=== PATIENT | female | born 1950 | race African-American/Black ===

== ENCOUNTER 2019-02-14 10:06 | Inpatient (IN) | payer OTHER ==
[2019-02-14 10:18] VITALS: BMI 33.4
--- NOTE | 2019-02-14 10:41 | PDOC ---
Documentation entered by Lorna Guerrero SCRIBE, acting as scribe for Joyce Alejandro MD. Joyce Alejandro MD: This documentation has been prepared by the Yolanda woodruff Adrianna, SCRIBE, under my direction and personally reviewed by me in its entirety. I confirm that the documentation accurately reflects all work, treatment, procedures, and medical decision making performed by me. History of Present Illness - General Chief Complaint: AV shunt bleeding Stated Complaint: BLEEDING Time Seen by Provider: 02/14/19 10:27 History Source: Patient Exam Limitations: No Limitations - History of Present Illness Initial Comments: 02/14/19 10:38 68-year-old female history of hypertension end-stage renal disease on dialysis Tuesday, Parkinson's, anemia here from [facility] for a bleeding fistula. Per snf the patient's fistula has been having episodes of bleeding intermittently for the last 2 weeks. Patient states her last dialysis was on Tuesday 5 days prior she did not have dialysis 2 days ago per schedule due to the fact that her fistula was bleeding. States she is scheduled to see Dr. Paniagua tomorrow but today the site began bleeding excessively. Denies any chest pain or shortness of breath no other current complaints states she has been on dialysis for 8 years does take a baby aspirin daily allergic to tetracycline PCP is Dr. janny calvillo Past History - Past Medical History Allergies/Adverse Reactions: Allergies Allergy/AdvReac Type Severity Reaction Status Date / Time tetracycline Allergy Verified 02/14/19 10:18 Anemia: Yes COPD: No Dialysis: Yes HTN: Yes Other medical history: necrotizing hemorrhagic encephalopathy - Psycho Social/Smoking Cessation Hx Smoking History: Never smoked Have you smoked in the past 12 months: No Information on smoking cessation initiated: No Hx Alcohol Use: No Drug/Substance Use Hx: No Review of Systems - Review of Systems Comments:: GENERAL/CONSTITUTIONAL: No fever or chills. No weakness. HEAD, EYES, EARS, NOSE AND THROAT: No change in vision. No ear pain or discharge. No sore throat. CARDIOVASCULAR: No chest pain or shortness of breath. RESPIRATORY: No cough, wheezing, or hemoptysis. GASTROINTESTINAL: No nausea, vomiting, diarrhea or constipation. GENITOURINARY: No dysuria, frequency, or change in urination. MUSCULOSKELETAL: +RUE fistula bleeding. No joint or muscle swelling. No neck or back pain. SKIN: No rash NEUROLOGIC: No headache, vertigo, loss of consciousness, or change in strength/ sensation. ENDOCRINE: No increased thirst. No abnormal weight change. HEMATOLOGIC/LYMPHATIC: No anemia, easy bleeding, or history of blood clots. ALLERGIC/IMMUNOLOGIC: No hives or skin allergy. *Physical Exam - Vital Signs Last Vital Signs Temp Pulse Resp BP Pulse Ox 97.8 F 77 20 122/76 98 02/14/19 10:09 02/14/19 10:09 02/14/19 10:09 02/14/19 10:09 02/14/19 10:09 - Physical Exam Comments: 02/14/19 10:40 Awake alert no acute distress lungs are clear bilaterally heart is regular without murmurs rubs or gallops abdomen is soft nontender obese. Extremities is noted for a right upper extremity fistula there is an active arterial bleed which is pulsatile. Pressure dressing was applied with Surgicel and wrapped with an Kirill bandage bleeding was controlled neurologically patient is alert and oriented x3 skin is otherwise warm dry and intact Heart Score/ECG Review #1 General ECG Interpretation: Sinus Rhythm, Normal Rate, Normal Intervals, No acute ischemic changes Compared to previous ECG there are: Previous ECG unavail (TWI I AVL< V6, no old ekg.) ED Treatment Course - LABORATORY CBC & Chemistry Diagram: 02/14/19 10:55 02/14/19 10:55 Medical Decision Making - Medical Decision Making 02/14/19 10:40 68-year-old female end-stage renal disease hypertension here with a bleeding fistula will likely require emergent vascular repair. Dr. Paniagua will be paged preop's were sent CBC CMP and coags. In addition patient will have a chest x-ray to rule out any underlying pulmonary edema as she did miss her most recent dialysis. 02/14/19 18:05 pt evaluted by vasc surgery in ed. wound ulcerated. unable to repair in ED. will treat with temporary vasc access, and close off fistula. Discharge - Discharge Information Problems reviewed: Yes Clinical Impression/Diagnosis: Hemorrhage of arteriovenous fistula, ESRD (end stage renal disease) Condition: Good - Admission Yes - Follow up/Referral - Patient Discharge Instructions - Post Discharge Activity
[2019-02-14 11:11] LABS: BASO % 0.7 % (0-2.0); HEMATOCRIT 25.8 % (32.4-45.2); HEMOGLOBIN 8.9 GM/dL (10.7-15.3); LYMPH % 14.2 % (8-40); MCH 32.6 pg (25.7-33.7); MCHC 34.5 g/dl (32.0-36.0); MEAN CELL VOLUME 94.4 fl (80-96); MEAN PLT VOLUME 9.1 fl (7.5-11.1); MONO % 5.4 % (3.8-10.2); NEUT % 69.7 % (42.8-82.8); PLATELET COUNT 206 K/MM3 (134-434); RBC 2.73 M/mm3 (3.60-5.2); RDW 16.5 % (11.6-15.6); WHITE BLOOD COUNT 9.3 K/mm3 (4.0-10.0)
[2019-02-14 11:23] LABS: INR 1.13 (0.83-1.09); PROTHROMBIN TIME (PATIENT) 13.3 SEC (9.7-13.0)
[2019-02-14 11:26] LABS: ACTIVATED PTT 29.5 SECONDS (25.2-36.5)
[2019-02-14 12:01] LABS: ALBUMIN 3.2 g/dl (3.4-5.0); BILIRUBIN,TOTAL 0.5 mg/dL (0.2-1); BLOOD UREA NITROGEN 31.7 mg/dL (7-18); TOT PROT 6.9 g/dl (6.4-8.2)
[2019-02-14] MEDS ORDERED: MIDAZOLAM HCL 2 MG/2 ML SINGLE DOSE VIAL ONE ×2 (13:31→14:41)
--- NOTE | 2019-02-14 13:31 | CONSULT ---
Consult Consult Specialty:: Nephrology Reason for Consultation:: ESRD - History of Present Illness Chief Complaint: right arm fistula bleeding History of Present Illness: Pt is a 68 year old female with pmhx of esrd, anemia and htn who was sent in for bleeding from her right av fistula. I was called to evaluate her as she is an HD pt. She last went to HD on Tuesday however was not dialyzed as she had bleeding. She denies shortness of breath or palpitations. SHe is awake and alert. She denies fevers or chills. She had an appointment to see Dr Paniagua as outpt however came to the ER as she had excessive bleeding. - History Source History Provided By: Patient, Medical Record - Past Medical History Cardio/Vascular: Yes: HTN Renal/: Yes: Renal Failure, Hemodialysis Heme/Onc: Yes: Anemia - Past Surgical History Past Surgical History: Yes: AV Fistula/Graft - Alcohol/Substance Use Hx Alcohol Use: No - Smoking History Smoking history: Never smoked Have you smoked in the past 12 months: No Home Medications - Allergies Allergies/Adverse Reactions: Allergies Allergy/AdvReac Type Severity Reaction Status Date / Time tetracycline Allergy Verified 02/14/19 10:18 Family Medical History Family History: Denies Review of Systems - Review of Systems Constitutional: reports: No Symptoms Eyes: reports: No Symptoms HENT: reports: No Symptoms Neck: reports: No Symptoms Cardiovascular: reports: No Symptoms Respiratory: reports: No Symptoms Gastrointestinal: reports: No Symptoms Musculoskeletal: reports: Other (bleeding from av fistula) Neurological: reports: No Symptoms Endocrine: reports: No Symptoms Hematology/Lymphatic: reports: No Symptoms Psychiatric: reports: No Symptoms Physical Exam Vital Signs: Vital Signs Temperature 97.8 F 02/14/19 10:09 Pulse Rate 77 02/14/19 10:09 Respiratory Rate 20 02/14/19 10:09 Blood Pressure 122/76 02/14/19 10:09 O2 Sat by Pulse Oximetry (%) 98 02/14/19 10:09 Constitutional: Yes: Calm Eyes: Yes: Conjunctiva Clear HENT: Yes: Atraumatic Neck: Yes: Supple Cardiovascular: Yes: S1, S2 Respiratory: Yes: CTA Bilaterally Gastrointestinal: Yes: Soft, Abdomen, Obese Renal/: Yes: WNL Musculoskeletal: Yes: WNL Extremities: Yes: Other (right arm fistula with compression dressing, right hand cooler than left hand) Integumentary: Yes: WNL Neurological: Yes: Oriented Psychiatric: Yes: Oriented Labs: CBC, BMP 02/14/19 10:55 02/14/19 10:55 Imaging - Results Chest X-ray: Report Reviewed Problem List - Problems (1) Anemia Code(s): D64.9 - ANEMIA, UNSPECIFIED (2) ESRD (end stage renal disease) Code(s): N18.6 - END STAGE RENAL DISEASE (3) HTN (hypertension) Code(s): I10 - ESSENTIAL (PRIMARY) HYPERTENSION (4) Hemorrhage of arteriovenous fistula Code(s): T82.838A - HEMORRHAGE DUE TO VASCULAR PROSTH DEV/GRFT, INIT Assessment/Plan Impression 1. ESRD 2. av fistula bleeding 3. htn 4. anemia Plan - vascular surgery to evaluate access - will arrange for HD once access is in place - can dialyze tomorrow as she is going to OR tonight - monitor bp - check iron studies - epogen for anemia
[2019-02-14] MEDS ORDERED: LIDOCAINE HCL 1%, 10 MG/ML (20ML VIAL) ONE (13:32)
[2019-02-14] MEDS ORDERED: HEPARIN NA (PORCINE) 5,000 UNITS/ML 1ML VIAL ONE (13:32)
--- NOTE | 2019-02-14 13:36 | HP ---
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: Parkinson's Cardiovascular: Yes: HTN Renal/: Yes: Hemodialysis - Smoking History Smoking history: Never smoked Have you smoked in the past 12 months: No - Alcohol/Substance Use Hx Alcohol Use: No Home Medications - Allergies Allergies/Adverse Reactions: Allergies Allergy/AdvReac Type Severity Reaction Status Date / Time tetracycline Allergy Verified 02/14/19 10:18 - Home Medications Home Medications: Ambulatory Orders Acetaminophen [Tylenol] 325 mg PO PRN 02/16/19 Aspirin [Aspirin EC] 81 mg PO ONCE 02/16/19 Hydralazine HCl 10 mg PO TID 02/16/19 Labetalol HCl [Normodyne -] 100 mg PO BID 02/16/19 Losartan Potassium 50 mg PO ONCE 02/16/19 Review of Systems - Review of Systems Constitutional: denies: Chills, Fever Physical Examination Vital Signs: Vital Signs Temperature 97.8 F 02/14/19 10:09 Pulse Rate 77 02/14/19 10:09 Respiratory Rate 20 02/14/19 10:09 Blood Pressure 122/76 02/14/19 10:09 O2 Sat by Pulse Oximetry (%) 98 02/14/19 10:09 Constitutional: Yes: No Distress, Calm Cardiovascular: Yes: Regular Rate and Rhythm Respiratory: Yes: CTA Bilaterally Gastrointestinal: Yes: Normal Bowel Sounds, Soft, Abdomen, Obese. No: Tenderness Edema: No Labs: CBC, BMP 02/14/19 10:55 02/14/19 10:55 Imaging - Results Chest X-ray: Image Reviewed EKG: Image Reviewed Problem List - Problems (1) Anemia Code(s): D64.9 - ANEMIA, UNSPECIFIED (2) ESRD (end stage renal disease) Code(s): N18.6 - END STAGE RENAL DISEASE (3) HTN (hypertension) Code(s): I10 - ESSENTIAL (PRIMARY) HYPERTENSION (4) Hemorrhage of arteriovenous fistula Code(s): T82.838A - HEMORRHAGE DUE TO VASCULAR PROSTH DEV/GRFT, INIT (5) Parkinson disease Code(s): G20 - PARKINSON'S DISEASE Assessment/Plan PLAN Seen by vascular will be going to OR today for AVF repair Renal eval for dialysis may need PRBC if needed continue with meds
--- NOTE | 2019-02-14 13:38 | CONSULT ---
<Souleymane Estrada P - Last Filed: 02/14/19 13:41> - Consultation REQUESTING PROVIDER: VASCULAR SURGERY - Juventino Paniagua CONSULT REQUEST: We have been asked to surgically evaluate this patient for bleeding RUE AVF PCP: Angely Castellon HPI: Called to david 68 yo female w/ PMHx as noted below. Sent in from [facility] secondary to bleeding fistula. Patient states she's been having intermittent bleeding issues with her fistula over 2 weeks. Typically would stop with a little direct pressure. Per her (at bedside) states her last HD session was on Tuesday (due today as per her schedule). Only takes a baby ASA daily. Last meal eaten was breakfast. Denies n/v/f/c, CP, palpitations, peripheral edema, SOB or ONTIVEROS. PMHx: Anemia, ESRD on HD (M-W-), HTN, Parkinson's PSHx: RUE AVF Allergies: Tetracycline ROS: CONSTITUTIONAL: Absent: fever, chills, diaphoresis, generalized weakness, malaise, loss of appetite CARDIOVASCULAR: Absent: syncope, irregular heart rate, lightheadedness RESPIRATORY: Absent: cough, wheezing, stridor, hemoptysis GASTROINTESTINAL:Absent: abdominal pain, abdominal distension, melena, hematochezia GENITOURINARY: Absent: dysuria, frequency, urgency, hesitancy, hematuria, flank pain, genital pain MUSCULOSKELETAL: Absent: myalgia, arthralgia, joint swelling, back pain, neck pain SKIN: Absent: rash, itching, pallor HEMATOLOGIC/IMMUNOLOGIC: Absent: easy bruising, lymphadenopathy NEUROLOGIC: Absent: headache, focal weakness, paresthesias,unsteady gait, seizure, mental status changes, PSYCHIATRIC: Absent: anxiety, depression, suicidal or homicidal ideation, hallucinations. PE: GENERAL: A&O. NAD HEAD: NC. AT. EYES: PERRL, sclera anicteric, conjunctiva clear. LUNGS: CTA bilat HEART: RRR ABDOMEN: Obese habitus. Soft, NT. ND. UE: LUE unremarkable. RUE with palpable thrill (just proximal to AC fossa). Actively bleeding from small (~ 1cm x 1cm) ulceration over previous HD needle insertion site. 2+ pulses, warm, well-perfused. No cyanosis. Cap refill <2 seconds. No peripheral edema. LE: 2+ pulses, warm, well-perfused. No calf tenderness. No peripheral edema. PSYCH: Cooperative. Good eye contact. Appropriate mood and affect. SKIN: Warm, dry, normal turgor, no rashes or lesions noted. Last Vital Signs Temp Pulse Resp BP Pulse Ox 97.8 F 77 20 122/76 98 02/14/19 10:09 02/14/19 10:09 02/14/19 10:09 02/14/19 10:09 02/14/19 10:09 CBC, BMP 02/14/19 10:55 02/14/19 10:55 INR, PTT INR 1.13 (0.83-1.09) H 02/14/19 10:55 Blood Type Blood Type O POSITIVE 02/14/19 10:55 Problem List - Problems (1) Hemorrhage of arteriovenous fistula Assessment/Plan: 68 yo female with actively bleeding RUE AVF. Able to control temporarily with pressure dressing NPO IVF Pressure dressing in place Going to OR today for AVF ligation, insertion of Permacath Renal/[place] following and will schedule HD Medical optimization Above plan discussed with Dr. Paniagua and agrees. Code(s): T82.838A - HEMORRHAGE DUE TO VASCULAR PROSTH DEV/GRFT, INIT (2) Anemia Code(s): D64.9 - ANEMIA, UNSPECIFIED (3) HTN (hypertension) Code(s): I10 - ESSENTIAL (PRIMARY) HYPERTENSION (4) Parkinson disease Code(s): G20 - PARKINSON'S DISEASE (5) ESRD (end stage renal disease) Code(s): N18.6 - END STAGE RENAL DISEASE Visit type - Case Type Case Type: ED Admission - Emergency Emergency Visit: Yes ED Registration Date: 02/14/19 Care time: The patient presented to the Emergency Department on the above date and was hospitalized for further evaluation of their emergent condition. - New patient This patient is new to me today: Yes Date on this admission: 02/14/19 <Juventino Paniagua - Last Filed: 02/15/19 15:35> - Consultation REQUESTING PROVIDER: CONSULT REQUEST: We have been asked to surgically evaluate this patient for ( specify). PCP:April Llanos HISTORY OF PRESENT ILLNESS: PMHx: PSHx: Allergies Allergy/AdvReac Type Severity Reaction Status Date / Time tetracycline Allergy Verified 02/14/19 10:18 REVIEW OF SYSTEMS: CONSTITUTIONAL: Absent: fever, chills, diaphoresis, generalized weakness, malaise, loss of appetite, weight change CARDIOVASCULAR: Absent: chest pain, syncope, palpitations, irregular heart rate, lightheadedness , peripheral edema RESPIRATORY: Absent: cough, shortness of breath, dyspnea with exertion, wheezing, stridor, hemoptysis GASTROINTESTINAL: Absent: abdominal pain, abdominal distension, nausea, vomiting, diarrhea, constipation, melena, hematochezia GENITOURINARY: Absent: dysuria, frequency, urgency, hesitancy, hematuria, flank pain, genital pain MUSCULOSKELETAL: Absent: myalgia, arthralgia, joint swelling, back pain, neck pain SKIN: Absent: rash, itching, pallor HEMATOLOGIC/IMMUNOLOGIC: Absent: easy bleeding, easy bruising, lymphadenopathy NEUROLOGIC: Absent: headache, focal weakness, paresthesias, dizziness, unsteady gait, seizure, mental status changes, bladder or bowel incontinence PSYCHIATRIC: Absent: anxiety, depression, suicidal or homicidal ideation, hallucinations. PHYSICAL EXAM: GENERAL: Awake, alert, and fully oriented, in no acute distress. HEAD: Normal with no signs of trauma. EYES: PERRL, sclera anicteric, conjunctiva clear. NECK: Normal ROM, supple without lymphadenopathy, JVD, or masses. LUNGS: Clear to auscultation bilat anteriorly. No wheezes, and no crackles. No accessory muscle use. HEART: Regular rate and rhythm. No murmurs ABDOMEN: Soft, nontender, not distended, normoactive bowel sounds, no guarding, no rebound, no masses. No organomegaly. MUSCULOSKELETAL: Normal ROM at all joints. No bony deformities or tenderness. No CVA tenderness. UPPER EXTREMITIES: 2+ pulses, warm, well-perfused. No cyanosis. Cap refill <2 seconds. No peripheral edema. LOWER EXTREMITIES: 2+ pulses, warm, well-perfused. No calf tenderness. No peripheral edema. NEUROLOGICAL: Normal speech, gait not observed. PSYCH: Cooperative. Good eye contact. Appropriate mood and affect. SKIN: Warm, dry, normal turgor, no rashes or lesions noted. Vital Signs Temperature 98.2 F 02/15/19 12:05 Pulse Rate 72 02/15/19 12:05 Respiratory Rate 20 02/15/19 12:05 Blood Pressure 98/64 02/15/19 12:05 O2 Sat by Pulse Oximetry (%) 97 02/14/19 21:00 Lab Results WBC 7.0 K/mm3 (4.0-10.0) 02/15/19 08:30 RBC 2.25 M/mm3 (3.60-5.2) L 02/15/19 08:30 Hgb 7.4 GM/dL (10.7-15.3) L 02/15/19 08:30 Hct 21.5 % (32.4-45.2) L D 02/15/19 08:30 MCV 95.6 fl (80-96) 02/15/19 08:30 MCHC 34.2 g/dl (32.0-36.0) 02/15/19 08:30 RDW 16.3 % (11.6-15.6) H 02/15/19 08:30 Plt Count 157 K/MM3 (134-434) D 02/15/19 08:30 Sodium 133 mmol/L (136-145) L 02/15/19 08:30 Potassium 4.9 mmol/L (3.5-5.1) 02/15/19 08:30 Chloride 95 mmol/L (98-107) L 02/15/19 08:30 Carbon Dioxide 29 mmol/L (21-32) 02/15/19 08:30 Anion Gap 9 MMOL/L (8-16) 02/15/19 08:30 BUN 42.8 mg/dL (7-18) H 02/15/19 08:30 Creatinine 9.0 mg/dL (0.55-1.3) H* 02/15/19 08:30 Random Glucose 86 mg/dL (74-106) 02/15/19 08:30 Calcium 8.6 mg/dL (8.5-10.1) 02/15/19 08:30 Blood Type O POSITIVE 02/14/19 14:29 Antibody Screen Negative 02/14/19 10:55 INR 1.13 (0.83-1.09) H 02/14/19 10:55 History reviewed. Left AVF with actively bleeding ulceration. Will need fistula ligation and Permacath placed emergently.
[2019-02-14] MEDS ORDERED: LIDOCAINE HCL 1%, 10 MG/ML (20ML VIAL) INF ONE ×2 (14:20)
[2019-02-14] MEDS ORDERED: ceFAZolin SODIUM 1 GM VIAL ONE (14:29)
--- NOTE | 2019-02-14 14:32 | EKG ---
Test Reason : Blood Pressure : / mmHG Vent. Rate : 068 BPM Atrial Rate : 068 BPM P-R Int : 210 ms QRS Dur : 100 ms QT Int : 470 ms P-R-T Axes : 034 -58 129 degrees QTc Int : 499 ms SINUS RHYTHM WITH 1ST DEGREE A-V BLOCK LEFT AXIS DEVIATION SEPTAL INFARCT , AGE UNDETERMINED T WAVE ABNORMALITY, CONSIDER LATERAL ISCHEMIA ABNORMAL ECG NO PREVIOUS ECGS AVAILABLE Confirmed by JESSICA BROWN, DASIA ([id number]) on 02/14/2019 2:31:40 PM Referred By: Confirmed By:DASIA LOPEZ MD
[2019-02-14] MEDS ORDERED: ceFAZolin SODIUM 1 GM VIAL IVPB ONE (14:35)
[2019-02-14] MEDS ORDERED: ONDANSETRON 4 MG/2 ML VIAL ONE (14:48)
[2019-02-14] MEDS ORDERED: oxyCODONE HCL 5 MG TABLET PO PRN ×2 (15:36→16:05)
[2019-02-14] MEDS ORDERED: ACETAMINOPHEN 325 MG TABLET (FP) PO PRN (15:36)
--- NOTE | 2019-02-14 16:32 | OP ---
Operative Note - Note: Operative Date: 02/14/19 Pre-Operative Diagnosis: Bleeding AV fistula right arm, ESRD Operation: Ligation AV fistula. Excsion infected fistula. 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 Occlusion right IJ Implants: 19 cm Permacath Post-Operative Diagnosis: Same as Pre-op Surgeon: Juventino Paniagua Manufacturing Quality Engineer: Souleymane Estrada Anesthesiologist/BINGO FLOATER: Ana Paula Dodge Anesthesia: Fractional Estimated Blood Loss (mls): 100
[2019-02-14] MEDS ORDERED: CEFAZOLIN 0.5 GM in DEXTROSE 5%-WATER - 50 ML IVPB SCH (16:37)
--- NOTE | 2019-02-14 16:52 | SURG ---
Surgery Rehabilitation Technician Note Rehabilitation Technician: Souleymane Estrada PA-C Date of Service: 02/14/19 Diagnosis: Bleeding AV fistula right arm, ESRD Procedure: Ligation AV fistula. Excsion infected fistula. Placement Permacath I was present for the entirety of the operative procedure. For further detail, please refer to operative report. Visit type - Case Type Case Type: ED Admission - Emergency Emergency Visit: Yes ED Registration Date: 02/14/19 Care time: The patient presented to the Emergency Department on the above date and was hospitalized for further evaluation of their emergent condition. - New patient This patient is new to me today: Yes Date on this admission: 02/14/19
[2019-02-14] MEDS ORDERED: CEFAZOLIN 500 MG in DEXTROSE 5%-WATER - 50 ML IVPB SCH (17:33)
[2019-02-14] MEDS: oxyCODONE HCL 5 MG TABLET PO PRN (19:38)
[2019-02-15] MEDS: oxyCODONE HCL 5 MG TABLET PO PRN (02:48)
[2019-02-15] MEDS: CEFAZOLIN 500 MG in DEXTROSE 5%-WATER - 50 ML IVPB SCH ×2 (02:48→14:49)
[2019-02-15] MEDS ORDERED: SODIUM CHLORIDE 250 ML IV PRN ×2 (08:57→15:38)
--- NOTE | 2019-02-15 09:05 | PN ---
Progress Note (short form) - Note Progress Note: 68yo F s/p RUE AV fistula ligation and Permacath placement. Pt states that her arm pain is much better. Pt denies fever, chills, n/v. Pt is scheduled for HD later today. Last Vital Signs Temp Pulse Resp BP Pulse Ox 97.8 F 67 18 111/66 97 02/15/19 08:25 02/15/19 08:30 02/15/19 08:30 02/15/19 08:30 02/14/19 21:00 CBC, BMP 02/14/19 10:55 02/14/19 10:55 PE: Gen: A&O X3 Resp: breathing comfortably Chest: RT sided permacath in place no erythema or discharge RUE: dressing in place, no weakness or numbness in hand. Problem List - Problems (1) Hemorrhage of arteriovenous fistula Assessment/Plan: Plan -pt will have HD today -plan to change dressing tomorrow Code(s): T82.838A - HEMORRHAGE DUE TO VASCULAR PROSTH DEV/GRFT, INIT
[2019-02-15 09:16] LABS: HEMATOCRIT 21.5 % (32.4-45.2); HEMOGLOBIN 7.4 GM/dL (10.7-15.3); MCH 32.7 pg (25.7-33.7); MCHC 34.2 g/dl (32.0-36.0); MEAN CELL VOLUME 95.6 fl (80-96); MEAN PLT VOLUME 8.9 fl (7.5-11.1); PLATELET COUNT 157 K/MM3 (134-434); RBC 2.25 M/mm3 (3.60-5.2); RDW 16.3 % (11.6-15.6)
[2019-02-15] MEDS ORDERED: EPOETIN ALFA 2,000 UNIT/1 ML VIAL IVPUSH ONE (10:00)
[2019-02-15 10:10] LABS: BLOOD UREA NITROGEN 42.8 mg/dL (7-18); CALCIUM 8.6 mg/dL (8.5-10.1); POTASSIUM 4.9 mmol/L (3.5-5.1)
--- NOTE | 2019-02-15 13:08 | PN ---
Progress Note (short form) - Note Progress Note: pt examined in dialysis received one unit PRBC Vital Signs - 24 hr 02/14/19 02/14/19 02/14/19 13:36 16:11 16:25 Temperature 97.9 F Pulse Rate 74 71 Pulse Rate [ 82 Left Radial] Respiratory 20 18 16 Rate Blood Pressure 133/62 107/64 Blood Pressure 128/84 [Left] O2 Sat by Pulse 98 100 98 Oximetry (%) 02/14/19 02/14/19 02/14/19 16:40 16:55 17:10 Temperature Pulse Rate 73 70 72 Pulse Rate [ Left Radial] Respiratory 14 16 16 Rate Blood Pressure 97/51 L 98/50 L 90/512 H Blood Pressure [Left] O2 Sat by Pulse 97 100 100 Oximetry (%) 02/14/19 02/14/19 02/14/19 17:25 21:00 23:00 Temperature 97.9 F Pulse Rate 72 71 Pulse Rate [ Left Radial] Respiratory 14 20 20 Rate Blood Pressure 90/50 L 103/54 L Blood Pressure [Left] O2 Sat by Pulse 100 97 Oximetry (%) 02/15/19 02/15/19 02/15/19 03:47 06:00 08:25 Temperature 98.5 F 97.8 F Pulse Rate 68 69 66 Pulse Rate [ Left Radial] Respiratory 20 20 18 Rate Blood Pressure 102/56 L 114/66 118/63 Blood Pressure [Left] O2 Sat by Pulse Oximetry (%) 02/15/19 02/15/19 02/15/19 08:30 09:00 09:31 Temperature Pulse Rate 67 71 73 Pulse Rate [ Left Radial] Respiratory 18 18 18 Rate Blood Pressure 111/66 104/60 111/69 Blood Pressure [Left] O2 Sat by Pulse Oximetry (%) 02/15/19 02/15/19 02/15/19 10:00 10:30 11:00 Temperature Pulse Rate 67 68 70 Pulse Rate [ Left Radial] Respiratory 18 18 18 Rate Blood Pressure 106/42 L 96/56 L 126/68 Blood Pressure [Left] O2 Sat by Pulse Oximetry (%) 02/15/19 02/15/19 02/15/19 11:30 11:46 12:05 Temperature 98.2 F Pulse Rate 70 73 72 Pulse Rate [ Left Radial] Respiratory 18 18 20 Rate Blood Pressure 122/69 123/65 98/64 Blood Pressure [Left] O2 Sat by Pulse Oximetry (%) Current Medications Generic Name Dose Route Start Last Admin Trade Name Freq PRN Reason Stop Dose Admin Cefazolin Sodium 500 mg/ 50 mls @ 100 mls/hr 02/15/19 02:00 02/15/19 02:48 Dextrose IVPB 100 mls/hr Q12H JOJO Administration Oxycodone HCl 5 mg 02/14/19 16:37 02/15/19 02:48 Roxicodone - PO 5 mg Q6H PRN Administration PAIN LEVEL 1-5 Laboratory Results - last 24 hr 02/14/19 02/14/19 02/15/19 10:55 14:29 06:20 WBC RBC Hgb Hct MCV MCH MCHC RDW Plt Count MPV Sodium Potassium Chloride Carbon Dioxide Anion Gap BUN Creatinine Est GFR (CKD-EPI)AfAm Est GFR (CKD-EPI)NonAf Random Glucose Calcium Iron 92 Ferritin 1133.6 H Hep C Ab Diagnostic Hepatitis C RNA HCV RNA PCR log rn endoscopy/ml HCV RNA (PCR) IUs/ml HCV RNA PCR w/Genot Rflx Liver Fibrosis Interp Blood Type O POSITIVE O POSITIVE Antibody Screen Negative Crossmatch See Detail 02/15/19 02/15/19 02/15/19 08:30 08:30 08:30 WBC 7.0 RBC 2.25 L Hgb 7.4 L Hct 21.5 L D MCV 95.6 MCH 32.7 MCHC 34.2 RDW 16.3 H Plt Count 157 D MPV 8.9 Sodium 133 L Potassium 4.9 Chloride 95 L Carbon Dioxide 29 Anion Gap 9 BUN 42.8 H Creatinine 9.0 H* Est GFR (CKD-EPI)AfAm 4.71 Est GFR (CKD-EPI)NonAf 4.06 Random Glucose 86 Calcium 8.6 Iron Ferritin Hep C Ab Diagnostic Cancelled Hepatitis C RNA Cancelled HCV RNA PCR log rn endoscopy/ml Cancelled HCV RNA (PCR) IUs/ml Cancelled HCV RNA PCR w/Genot Rflx Cancelled Liver Fibrosis Interp Cancelled Blood Type Antibody Screen Crossmatch S1 S2 RRR Lungs clear Abd-soft, NT no edema right arm-- dressing in place right chest wall permacath PLAN transfusion as needed baseline anemia-- hb 8 S/p ligation of AVF and permacath placement may have dialysis tomorrow and after she can go back to [facility] Problem List - Problems (1) Anemia Code(s): D64.9 - ANEMIA, UNSPECIFIED (2) ESRD (end stage renal disease) Code(s): N18.6 - END STAGE RENAL DISEASE (3) HTN (hypertension) Code(s): I10 - ESSENTIAL (PRIMARY) HYPERTENSION (4) Hemorrhage of arteriovenous fistula Code(s): T82.838A - HEMORRHAGE DUE TO VASCULAR PROSTH DEV/GRFT, INIT (5) Parkinson disease Code(s): G20 - PARKINSON'S DISEASE
--- NOTE | 2019-02-15 15:38 | PN ---
Progress Note, Physician History of Present Illness: Pt seen and examined at bedside. She is awake and alert. She denies shortness of breath. - Current Medication List Current Medications: Active Medications Cefazolin Sodium 500 mg/ (Dextrose) 50 mls @ 100 mls/hr IVPB Q12H JOJO Last Admin: 02/15/19 14:49 Dose: 100 mls/hr Oxycodone HCl (Roxicodone -) 5 mg PO Q6H PRN PRN Reason: PAIN LEVEL 1-5 Last Admin: 02/15/19 02:48 Dose: 5 mg - Objective Vital Signs: Vital Signs Temperature 98.2 F 02/15/19 12:05 Pulse Rate 72 02/15/19 12:05 Respiratory Rate 20 02/15/19 12:05 Blood Pressure 98/64 02/15/19 12:05 O2 Sat by Pulse Oximetry (%) 97 02/14/19 21:00 Constitutional: Yes: Calm Eyes: Yes: Conjunctiva Clear HENT: Yes: Atraumatic Cardiovascular: Yes: S1, S2 Respiratory: Yes: CTA Bilaterally Gastrointestinal: Yes: Soft, Abdomen, Obese Genitourinary: Yes: WNL Musculoskeletal: Yes: WNL Extremities: Yes: Other (right arm dressing in place) Edema: No Neurological: Yes: Oriented Psychiatric: Yes: Oriented Labs: CBC, BMP 02/15/19 08:30 02/15/19 08:30 INR, PTT INR 1.13 (0.83-1.09) H 02/14/19 10:55 Problem List - Problems (1) Anemia Code(s): D64.9 - ANEMIA, UNSPECIFIED (2) ESRD (end stage renal disease) Code(s): N18.6 - END STAGE RENAL DISEASE (3) HTN (hypertension) Code(s): I10 - ESSENTIAL (PRIMARY) HYPERTENSION (4) Hemorrhage of arteriovenous fistula Code(s): T82.838A - HEMORRHAGE DUE TO VASCULAR PROSTH DEV/GRFT, INIT Assessment/Plan Current Medications Generic Name Dose Route Start Last Admin Trade Name Freq PRN Reason Stop Dose Admin Cefazolin Sodium 500 mg/ 50 mls @ 100 mls/hr 02/15/19 02:00 02/15/19 14:49 Dextrose IVPB 100 mls/hr Q12H JOJO Administration Oxycodone HCl 5 mg 02/14/19 16:37 02/15/19 02:48 Roxicodone - PO 5 mg Q6H PRN Administration PAIN LEVEL 1-5 Impression 1. ESRD 2. av fistula bleeding 3. htn 4. anemia Plan - pt tolerated HD today - will arrange for HD tomorrow to get her back on schedule - epogen for anemia - did give a unit of blood today on HD
[2019-02-16] MEDS ORDERED: PT OWN MED DRAWER 7, Y5N ONE ×2 (01:34→14:54)
[2019-02-16] MEDS: CEFAZOLIN 500 MG in DEXTROSE 5%-WATER - 50 ML IVPB SCH ×2 (02:35→14:56)
--- NOTE | 2019-02-16 07:57 | PN ---
Progress Note (short form) - Note Progress Note: POD #2 68 yo female w/ h/o anemia, esrd on HD admitted to s/p emergent ligation of her bleeding RUE AVF. Alert. C/o mild incisional tenderness. Adequate pain control via prn meds. Received 1 PRBC during her HD via PC 02/15/19 Denies n/v/f/c, CP, palpitations or SOB. Last Vital Signs Temp Pulse Resp BP Pulse Ox 98.6 F 70 20 133/77 98 02/16/19 06:32 02/16/19 06:32 02/16/19 06:32 02/16/19 06:32 02/15/19 21:00 TRENDS 02/14/19 02/14/19 02/15/19 10:55 10:55 08:30 Hgb 8.9 7.4 Hct 25.8 21.5 Plt Count 206 157 Potassium 5.0 4.9 BUN 31.7 42.8 Creatinine 7.0 9.0 H Gen: nad RUE: wound bed is clean. no active bleeding. hand warm. 2+ radial. no edema/ swelling. sensory/motor intact <Souleymane Estrada - Last Filed: 02/16/19 08:02> - Note Progress Note: Need VNS for wound care at home. <Juventino Paniagua - Last Filed: 02/16/19 08:19> Problem List - Problems (1) Hemorrhage of arteriovenous fistula Assessment/Plan: POD #2 s/p Ligation AV fistula. Excision infected fistula. Placement Permacath Dressing changed on rounds H/o anemia --> f/u repeat H/H Transfuse PRBC prn Iron HD via PC (-w-) No further vascular interventions planned. Patient will f/u w/ Dr. Paniagua as out-patient to determine when a new AVF can be placed. On behalf of Dr. Paniagua, thank you for the opportunity to participate in your patient's care. Code(s): T82.838A - HEMORRHAGE DUE TO VASCULAR PROSTH DEV/GRFT, INIT (2) Anemia Code(s): D64.9 - ANEMIA, UNSPECIFIED (3) HTN (hypertension) Code(s): I10 - ESSENTIAL (PRIMARY) HYPERTENSION (4) Parkinson disease Code(s): G20 - PARKINSON'S DISEASE (5) ESRD (end stage renal disease) Code(s): N18.6 - END STAGE RENAL DISEASE <Souleymane Estrada - Last Filed: 02/16/19 08:02>
[2019-02-16] MEDS: oxyCODONE HCL 5 MG TABLET PO PRN ×2 (08:18→14:55)
[2019-02-16 09:28] LABS: HEMATOCRIT 25.5 % (32.4-45.2); HEMOGLOBIN 8.9 GM/dL (10.7-15.3); MCH 32.7 pg (25.7-33.7); MCHC 34.8 g/dl (32.0-36.0); MEAN PLT VOLUME 8.8 fl (7.5-11.1); PLATELET COUNT 160 K/MM3 (134-434); RBC 2.71 M/mm3 (3.60-5.2); RDW 16.9 % (11.6-15.6)
[2019-02-16] MEDS ORDERED: EPOETIN ALFA 6,000 UNIT, EPOETIN ALFA 2,000 UNIT IVPUSH ONE (10:00)
[2019-02-16] MEDS ORDERED: SODIUM CHLORIDE 250 ML IV PRN (10:00)
[2019-02-16 10:01] LABS: ALBUMIN 3.2 g/dl (3.4-5.0); BILIRUBIN,TOTAL 0.4 mg/dL (0.2-1); BLOOD UREA NITROGEN 24.4 mg/dL (7-18); CREATININE 6.6 mg/dL (0.55-1.3); TOT PROT 6.9 g/dl (6.4-8.2)
--- NOTE | 2019-02-16 10:10 | DS ---
Physical Examination Vital Signs: Vital Signs Temperature 98.5 F 02/16/19 08:40 Pulse Rate 82 02/16/19 08:45 Respiratory Rate 18 02/16/19 08:45 Blood Pressure 103/47 L 02/16/19 08:45 O2 Sat by Pulse Oximetry (%) 98 02/15/19 21:00 Findings/Remarks: pt seen/ examined in dialysis awake/ comfortable chart reviewed Being dialized Constitutional: Yes: No Distress Eyes: Yes: Conjunctiva Clear Neck: Yes: Supple Cardiovascular: Yes: Regular Rate and Rhythm Respiratory: Yes: Diminished Gastrointestinal: Yes: Soft Edema: No Wound/Incision: Yes: Dressing Dry and Intact Neurological: Yes: Alert Labs: CBC, BMP 02/16/19 08:50 02/16/19 08:50 Discharge Summary Problems reviewed: Yes Reason For Visit: HEMORRHAGE OF ARTERIOVENOUS FISTULA Current Active Problems Anemia (Acute) ESRD (end stage renal disease) (Acute) HTN (hypertension) (Acute) Hemorrhage of arteriovenous fistula (Acute) Parkinson disease (Acute) Hospital Course: 1. ESRD 2. av fistula bleeding-- s/p Ligation 3. htn 4. anemia 5. s/p Permacath placement- right chest Stable d/c regency after Dialysis Local care F/u With Dr. Hinojosa for out pt AVF creation Condition: Stable - Instructions Diet, Activity, Other Instructions: Post-operative Instructions Wound: Keep your dressing clean and dry and in place for 72 hours. You may shower in 48 hours with a waterproof bag or Saran wrap over the original dressing. In 72 hours when you remove the dressing, you may wet the incision in the shower ONLY. Allow soap and water to run over the incision, do not scrub the incision, pat dry well after showering. Check the incision daily after removal of the dressing for redness or drainage. If you note any redness or drainage, contact your surgeon immediately. Do not swim or soak in water (bath/ hot tub, etc) until cleared by your surgeon as this can lead to infection. Do not put creams or ointments on the wound until cleared by your surgeon. Diet: You may resume your regular diet unless otherwise instructed by your physician. Increase your fiber intake if taking narcotic pain medications as constipation is a common side effect. Pain Relief: Take pain medication as prescribed. Do not drive, drink alcohol or operate heavy machinery while taking narcotic pain medications. The pain medication you have been prescribed for pain contains Acetaminophen (Tylenol), do not take additional Tylenol with this pain medication. You should not exceed more than 4g (4000mg) of Tylenol in 24 hours as this can lead to liver damage or failure. Activity: No heavy lifting with your operative arm until cleared by your surgeon. Do no wear any occlusive jewelry on your operative arm as this can affect the functioning of your fistula. Follow-up Please call the office to schedule your follow up appointment in 2 weeks. Call your doctors office or go to the ER immediately if you develop: Trouble breathing, chest tightness or shortness of breath Oral temperature greater than 100.5 F Excessive redness, swelling, or drainage at the incision site. Foul odor from the incision. New, increasing pain/numbness/weakness or coolness in your arm. Disposition: [facility] - Home Medications Comprehensive Discharge Medication List: Ambulatory Orders Acetaminophen [Tylenol] 325 mg PO PRN 02/16/19 Aspirin [Aspirin EC] 81 mg PO ONCE 02/16/19 Hydralazine HCl 10 mg PO TID 02/16/19 Labetalol HCl [Normodyne -] 100 mg PO BID 02/16/19 Losartan Potassium 50 mg PO ONCE 02/16/19
[2019-02-16 14:15] LABS: BLOOD UREA NITROGEN 7.8 mg/dL (7-18); CREATININE 2.2 mg/dL (0.55-1.3)
[2019-02-16 15:14] VITALS: BP 116/68; PULSE 86; TEMP 97.8
--- NOTE | 2019-02-16 15:26 | PN ---
Progress Note, Physician History of Present Illness: Pt seen and examined earlier today. She is awake and alert. She denies shortness of breath. She tolerated HD. - Current Medication List Current Medications: Active Medications Cefazolin Sodium 500 mg/ (Dextrose) 50 mls @ 100 mls/hr IVPB Q12H JOJO Last Admin: 02/16/19 14:56 Dose: 100 mls/hr Sodium Chloride (Normal Saline -) 250 mls @ 3,000 mls/hr IV PRN PRN PRN Reason: Hypotension during Dialysis Oxycodone HCl (Roxicodone -) 5 mg PO Q6H PRN PRN Reason: PAIN LEVEL 1-5 Last Admin: 02/16/19 14:55 Dose: 5 mg - Objective Vital Signs: Vital Signs Temperature 97.8 F 02/16/19 15:11 Pulse Rate 86 02/16/19 15:11 Respiratory Rate 18 02/16/19 15:11 Blood Pressure 116/68 02/16/19 15:11 O2 Sat by Pulse Oximetry (%) 98 02/15/19 21:00 Constitutional: Yes: Calm Eyes: Yes: Conjunctiva Clear HENT: Yes: Atraumatic Cardiovascular: Yes: S1, S2 Respiratory: Yes: CTA Bilaterally Gastrointestinal: Yes: Normal Bowel Sounds, Soft Genitourinary: Yes: WNL Musculoskeletal: Yes: WNL Extremities: Yes: Other (dressing in place) Neurological: Yes: Oriented Psychiatric: Yes: Oriented Labs: CBC, BMP 02/16/19 08:50 02/16/19 12:00 INR, PTT INR 1.13 (0.83-1.09) H 02/14/19 10:55 Problem List - Problems (1) Anemia Code(s): D64.9 - ANEMIA, UNSPECIFIED (2) ESRD (end stage renal disease) Code(s): N18.6 - END STAGE RENAL DISEASE (3) HTN (hypertension) Code(s): I10 - ESSENTIAL (PRIMARY) HYPERTENSION (4) Hemorrhage of arteriovenous fistula Code(s): T82.838A - HEMORRHAGE DUE TO VASCULAR PROSTH DEV/GRFT, INIT Assessment/Plan Current Medications Generic Name Dose Route Start Last Admin Trade Name Freq PRN Reason Stop Dose Admin Cefazolin Sodium 500 mg/ 50 mls @ 100 mls/hr 02/15/19 02:00 02/16/19 14:56 Dextrose IVPB 100 mls/hr Q12H JOJO Administration Sodium Chloride 250 mls @ 3,000 mls/hr 02/16/19 10:00 Normal Saline - IV PRN PRN Hypotension during Dialysis Oxycodone HCl 5 mg 02/14/19 16:37 02/16/19 14:55 Roxicodone - PO 5 mg Q6H PRN Administration PAIN LEVEL 1-5 Impression 1. ESRD 2. av fistula bleeding 3. htn 4. anemia Plan - pt had HD today, she is back on MWF schedule - [facility] hg is improved
[2019-02-16] MEDS ORDERED: EPOETIN ALFA 2,000 UNIT/1 ML VIAL IVPUSH ONE (15:38)
--- NOTE | 2019-02-16 19:04 | PATH ---
Surgical Pathology Report Patient Name: ASHLIE BHATT Med. Rec. #: [id number] /Age/Gender: 1950 (Age: 68) / F Account: [id number] Location: [address] [place] [address]/[facility] Taken: 02/14/2019 Received: 02/15/2019 Reported: 02/16/2019 Physicians: Juventino Paniagua M.D. Specimen(s) Received ULCERATED AV-FISTULA RIGHT ARM Clinical History Hemorrhage of AV fistula right arm Final Diagnosis ULCERATED AV FISTULA, ARM, RIGHT, EXCISION: MARKEDLY DISTENDED, THICKENED, AND FIBROTIC VASCULAR TISSUE CONSISTENT WITH AV FISTULA ASSOCIATED WITH MARKED ACUTE AND CHRONIC INFLAMMATION AND OVERLYING SKIN ULCERATION. Electronically Signed Emerald Jain M.D. Gross Description Received in formalin labeled "ulcerated AV fistula right arm" are multiple fragments of fibrovascular soft tissue consistent with portions of AV fistula ranging in size from 1-3 cm in greatest dimension. The largest fragment has a skin ellipse which measures 3 x 2 cm. There is an ulcerated lesion on the skin surface measuring 1.5 x 1 cm. Solderer Barrel Ribs sections are submitted in one cassette. MLSZ/02/15/2019 sanmary ellen/02/15/2019
--- NOTE | 2019-02-20 11:22 | OP ---
DATE OF OPERATION: 02/14/2019 SURGEON: Juventino Paniagua MD PROCEDURE: Ligation of arteriovenous fistula, excision of infected section of fistula, placement of PermCath. PREOPERATIVE DIAGNOSIS: Bleeding arteriovenous fistula, right arm, end-stage renal disease. POSTOPERATIVE DIAGNOSIS: Bleeding arteriovenous fistula, right arm, end-stage renal disease. ANESTHESIA: Fractional. ANESTHESIOLOGIST: Ana Paula Dodge MD OPERATIVE FINDINGS: An ulcer overlying an AV fistula in the right upper arm was actively bleeding. There was occlusion of the right internal jugular vein. OPERATIVE PROCEDURE: Following routine patient identification with site and side verification, intravenous sedation was established. The right arm was prepped with Betadine solution with a bandage in place and then the bandage was removed and pressure applied with a Betadine sponge over the bleeding wound while the remainder of the arm was prepped sterilely and draped. Time-out was performed, 1% lidocaine was infiltrated in the skin distal to the bleeding wound, and an incision was made over the fistula. The vein was mobilized with sharp dissection and doubly ligated with 2-0 silk ties. The area of skin around the ulcer was then anesthetized with lidocaine and elliptical incision made around the edges of the ulcer. Subcutaneous tissues were divided using cautery. The skin with the attached fistula and vein was then mobilized and excised. Bleeding from the proximal vein was controlled with a suture ligature of 3-0 Vicryl. The wound was irrigated and packed open with iodoform gauze, and a sterile wrap was applied after closing the primary incision with 3-0 Vicryl subcuticular sutures and skin yennifer. The right neck and chest were then prepped with ChloraPrep and sterilely draped. Using real time ultrasound imaging, the right neck was evaluated, and no patent cephalic vein was identified. The subclavian vein was seen beneath the clavicle, and lidocaine was infiltrated in the skin and subcutaneous tissues over the vein, and it was cannulated under ultrasound guidance with a micropuncture needle. A wire was passed proximally under fluoroscopic guidance into the superior vena cava, and the needle was exchanged for a 5-Indonesian catheter. A J-tip wire was then advanced through the catheter into the right atrium. Additional lidocaine was infiltrated into the chest wall inferior to the clavicle, and a stab wound was made. A 19-cm tip-to-cuff Perma-Cath was advanced with a tunneler between the 2 incisions. The tract around the wire was then dilated, and the introducer was placed over the wire into the superior vena cava. The wire and the dilator were removed, and the tip of the PermCath was advanced through the introducer and positioned in the right atrium. The introducer was peeled away leaving the catheter in place. Each limb was aspirated for blood and then flushed with saline heparin solution. The infraclavicular incision was closed with a subcutaneous tissue of 3-0 Vicryl, and the catheter was sutured to the skin at the exit site where 3-0 nylon and sterile dressings were applied, and the patient was taken to the recovery room in stable condition. Damion PETERS/[id number]
== END 2019-02-16 17:19 | DRG 252 ==
LOC: JER 10:06 → JERBED 12:39 → J5S 17:48
PROVIDERS: ADMIT Internal Medicine; ATTEND Internal Medicine
PROC: 0JH60XZ Insertion of Tunneled Vascular Access Device into Chest Subcutaneous Tissue and Fascia, Open Approach (ICD-10-PCS; 2019-02-14)
PROC: 05BY0ZZ Excision of Upper Vein, Open Approach (ICD-10-PCS; principal; 2019-02-14 14:00)
PROC: 05LY0ZZ Occlusion of Upper Vein, Open Approach (ICD-10-PCS; 2019-02-14 14:00)
PROC: 5A1D70Z Performance of Urinary Filtration, Intermittent, Less than 6 Hours Per Day (ICD-10-PCS; 2019-02-15)
PROC: 30233N1 Transfusion of Nonautologous Red Blood Cells into Peripheral Vein, Percutaneous Approach (ICD-10-PCS; 2019-02-15)
DX: T82.838A Hemorrhage due to vascular prosthetic devices, implants and grafts, initial encounter (principal); N18.6 End stage renal disease; I12.0 Hypertensive chronic kidney disease with stage 5 chronic kidney disease or end stage renal disease; D64.9 Anemia, unspecified; G20 Parkinson's disease; Y83.9 Surgical procedure, unspecified as the cause of abnormal reaction of the patient, or of later complication, without mention of misadventure at the time of the procedure; Z99.2 Dependence on renal dialysis; E66.9 Obesity, unspecified; Z68.33 Body mass index [BMI] 33.0-33.9, adult
CPT/HCPCS: 36415; 36430; 36511; 71045-TC-FY; 76000-TC-FY; 80048; 80053; 82565; 82728; 83540; 84520; 85025; 85027; 85610; 85730; 86803; 86850; 86900; 86901; 86922; 87340; 88304-TC; 93005; 93010; 94760; 99283-25; J0885; J1644; P9038; P9058